=== PATIENT | male | born 1965 ===

== ENCOUNTER → 2017-04-19 | Emergency (ER) | payer SELFPAY ==
[~2017-04-19] VITALS: Ht 170.2 cm; Wt 92.7 kg
[~2017-04-19] MED LIST: proparacaine 0.5% ophthalmic drops 15ml LEFTEYE ONE
[2017-04-19 14:04] VITALS: BP 142/89
== END | disposition left against medical advice (07) ==
LOC: ER 13:41
DX: H57.10 Ocular pain, unspecified eye (principal); Z53.21 Procedure and treatment not carried out due to patient leaving prior to being seen by health care provider